=== PATIENT | female | born 1980 | race African-American/Black ===

== ENCOUNTER 2016-12-23 08:09 | Emergency (ER) | payer OTHER ==
[~2016-12-23] VITALS: Ht 177.8 cm; Wt 218.2 kg
[2016-12-23 08:15] VITALS: BP 126/96
[2016-12-23] MEDS ORDERED: CEPH500T PO (09:04)
[2016-12-23] MEDS ORDERED: PROM25TA10 PO (09:04)
--- NOTE | 2016-12-23 09:04 | PHYS DOC ---
Past Medical History Past Medical History: Hypertension, Other Additional Past Medical Histor: chronic back pain Past Surgical History: Other Additional Past Surgical Histo: hernia Additional Information: Quit smoking about 1 month ago and would smoke about 1/2PPD. Alcohol Use: Rarely Drug Use: Marijuana Social History Narrative: Last time smoked Marijuana was 3 wks ago. Adult General Chief Complaint Chief Complaint: LOWER BACK PAIN OR INJURY HPI HPI Patient is a 36 year old female with history of hypertension and obesity presents today with right low back pain mild in nature and frequency that began a week ago. Patient states her last menstrual cycle was in September 2016 and she could be . She states she has lost 100 pounds. She currently states her weight is 481 pounds. Patient denies any abdominal pain. She states she's had intermittent nausea and vomiting since yesterday. Denies any vaginal bleeding. Review of Systems Review of Systems Constitutional: Denies fever or chills [] Eyes: Denies change in visual acuity, redness, or eye pain [] HENT: Denies nasal congestion or sore throat [] Respiratory: Denies cough or shortness of breath [] Cardiovascular: No additional information not addressed in HPI [] GI: Denies abdominal pain, nausea, vomiting, bloody stools or diarrhea [] : Frequency. Integument: Denies rash or skin lesions [] Neurologic: Denies headache, focal weakness or sensory changes [] Endocrine: Denies polyuria or polydipsia Allergies Allergies Allergies Coded Allergies Type Severity Reaction Last Updated Verified No Known Drug Allergies 02/01/14 No Physical Exam Physical Exam Constitutional: Well developed, well nourished, no acute distress, non-toxic appearance. [] HENT: Normocephalic, atraumatic, bilateral external ears normal, oropharynx moist, no oral exudates, nose normal. [] Eyes: PERRLA, EOMI, conjunctiva normal, no discharge. [] Neck: Normal range of motion, no tenderness, supple, no stridor. [] Cardiovascular:Heart rate regular rhythm, no murmur [] Lungs & Thorax: Bilateral breath sounds clear to auscultation [] Abdomen: Morbidly obese. Bowel sounds normal, soft, no tenderness, no masses, no pulsatile masses. [] Skin: Warm, dry, no erythema, no rash. [] Back: No tenderness, no CVA tenderness. [] Extremities: No tenderness, no cyanosis, no clubbing, ROM intact, no edema. [] Neurologic: Alert and oriented X 3, normal motor function, normal sensory function, no focal deficits noted. [] Psychologic: Affect normal, judgement normal, mood normal. [] Current Patient Data Vital Signs Vital Signs Date Time Temp Pulse Resp B/P Pulse Ox O2 Delivery O2 Flow Rate FiO2 12/23/16 08:15 98.1 109 18 126/96 98 Room Air 98.1 EKG EKG [] Radiology/Procedures Radiology/Procedures [] Course & Med Decision Making Course & Med Decision Making Pertinent Labs and Imaging studies reviewed. (See chart for details) Patient is in the ED with right low back pain and concern for as well as frequency. Positive urine hCG. Urine dip positive for small amount of leukocytes. Patient was discharged with cephalexin. Tylenol recommended for pain. Provided an OB for follow-up. Discharge her with promethazine. Provided return precautions and discharged in stable condition. Dragon Disclaimer Dragon Disclaimer This electronic medical record was generated, in whole or in part, using a voice recognition dictation system. Departure Departure Impression: Primary Impression: Additional Impressions: Back pain Urinary tract infection affecting Nausea and vomiting in Disposition: 01 HOME, SELF-CARE Condition: STABLE Referrals: NASIR DURBIN (PCP) Please call the provided OBGYN and follow as soon as you can HERMAN MCCARTNEY MD Patient Instructions: - Urinary Tract Infection Additional Instructions: Congratulations for you are . We recommend you contact the provided OB /[facility] and establish care with them as soon as possible. You also have urinary tract infection. We put you on antibiotics. Ensure you complete them. Take Tylenol as needed for pain. Use the prescribed nausea/vomiting medicines as needed. Come back to the emergency room if you have any worsening symptoms or any symptoms of concern. Scripts Promethazine Hcl 25 Mg Tablet1 Tab PO PRN Q6HRS #20 TAB Prov:MUTROLANDALEVI [employer] 12/23/16 Cephalexin 500 Mg Tablet1 Tab PO QID #14 TAB Prov:MUTUNGA,LEVI [employer] 12/23/16 Problem Qualifiers Primary Impression: Weeks of gestation: unspecified Qualified Code: Z33.1 - state, incidental Additional Impressions: Back pain Back pain location: low back pain Chronicity: acute Back pain laterality: right Sciatica presence: without sciatica Qualified Code: M54.5 - Low back pain LEVI MG APRN Dec 23, 2016 09:04
[2016-12-23 09:10] LABS: BILIRUBIN,URINE NEGATIVE (NEG); GLUCOSE,URINE NEGATIVE (NEG); NITRITE,URINE NEGATIVE (NEG); PH,URINE 6.5; PROTEIN,URINE NEGATIVE (NEG-TRACE); UROBILINOGEN,URINE 0.2 mg/dL (0.2 mg/dL)
[2016-12-23 09:21] LABS: BACTERIA,URINE FEW /HPF (0-FEW); RBC,URINE 0 /HPF (0-2); SQUAMOUS EPITHELIAL CELL,UR MANY /LPF
[2016-12-23 09:24] LABS: NEG OBC UR NEG; POS OBC UR POS
== END 2016-12-23 09:14 | disposition home or self-care (01) ==
LOC: ER 08:09
DX: Z33.1 Pregnant state, incidental (principal); N39.0 Urinary tract infection, site not specified; R11.2 Nausea with vomiting, unspecified; I10 Essential (primary) hypertension; F12.10 Cannabis abuse, uncomplicated; Z87.891 Personal history of nicotine dependence
CPT/HCPCS: 81001; 81025; 87086; 99284

== ENCOUNTER 2018-04-22 21:03 | Emergency (ER) | payer OTHER ==
[2018-04-22 21:39] LABS: BILIRUBIN,URINE SMALL (NEG); CLARITY,URINE CLOUDY; COLOR,URINE YELLOW; GLUCOSE,URINE NEGATIVE (NEG); NITRITE,URINE NEGATIVE (NEG); PROTEIN,URINE NEGATIVE (NEG-TRACE)
[2018-04-22 21:49] LABS: BACTERIA,URINE FEW /HPF (0-FEW); RBC,URINE 0 /HPF (0-2); SQUAMOUS EPITHELIAL CELL,UR MANY /LPF; TRICHOMONAS,URINE PRESENT
[2018-04-22] MEDS: fentaNYL PF VIAL 100 MCG/2 ML VIAL IV (23:07)
[2018-04-22] MEDS: IV NORMAL SALINE 1000ML BAG 1,000 ML IV (23:07)
[2018-04-22 23:37] LABS: ADD MAN DIFF? NO
[2018-04-22 23:40] LABS: BASO % 1 % (0-3); EOS % 0 % (0-3); HEMATOCRIT 42.9 % (36.0-47.0); HEMOGLOBIN 14.6 g/dL (12.0-15.5); LYMPH # 1.5 x10^3/uL (1.0-4.8); LYMPH % 23 % (24-48); MEAN CORPUSCULAR HEMOGLOBIN 31 pg (25-35); MEAN CORPUSCULAR HGB CONC 34 g/dL (31-37); MEAN CORPUSCULAR VOLUME 92 fL (79-100); MONO # 0.3 x10^3/uL (0.0-1.1); MONO % 5 % (0-9); NEUT # 4.7 x10^3uL (1.8-7.7); NEUT % 71 % (31-73); PLATELET COUNT 312 x10^3/uL (140-400); RED BLOOD COUNT 4.68 x10^6/uL (3.50-5.40); RED CELL DISTRIBUTION WIDTH 14.8 % (11.5-14.5); WHITE BLOOD COUNT 6.7 x10^3/uL (4.0-11.0)
[2018-04-22 23:46] LABS: ANION GAP 11 (6-14); BLOOD UREA NITROGEN 14 mg/dL (7-20); BUN/CREATININE RATIO 14 (6-20); CALCIUM 8.8 mg/dL (8.5-10.1); CARBON DIOXIDE 29 mmol/L (21-32); CHLORIDE 106 mmol/L (98-107); GFR 74.7; GLUCOSE 107 mg/dL (70-99); POTASSIUM 3.8 mmol/L (3.5-5.1); SODIUM 146 mmol/L (136-145)
[2018-04-22 23:52] LABS: ALBUMIN 3.3 g/dL (3.4-5.0); ALBUMIN/GLOBULIN RATIO 0.7 (1.0-1.7); ALK PHOS 126 U/L (46-116); ALT (SGPT) 48 U/L (14-59); AST (SGOT) 39 U/L (15-37); LIPASE 73 U/L (73-393); TOTAL BILIRUBIN 0.8 mg/dL (0.2-1.0); TOTAL PROTEIN 8.1 g/dL (6.4-8.2)
[2018-04-23] MEDS ORDERED: ONDANSETRON PF 4 MG/2 ML VIAL. IV (01:30)
[2018-04-23] MEDS: MORPHINE SULFATE 4 MG/ML DISP.SYRIN. IV (03:44)
[2018-04-23] MEDS: IV NORMAL SALINE 1000ML BAG 1,000 ML IV (05:31)
== END 2018-04-23 09:05 | disposition short-term general hospital (02) ==
LOC: 4 NORTH 04-23 00:48 → ER 21:03
DX: K80.10 Calculus of gallbladder with chronic cholecystitis without obstruction (principal); E66.01 Morbid (severe) obesity due to excess calories; I10 Essential (primary) hypertension; G89.29 Other chronic pain
CPT/HCPCS: 36415; 76705; 80053; 81001; 83690; 84702; 85025; 87086; 96361; 96365; 96367; 96375; 99285; 99285-25; J0690; J2270; J3010; J3490; J7030